=== PATIENT | male | born 1985 | race African-American/Black ===

== ENCOUNTER 2024-09-11 23:48 | Emergency (ER) | payer OTHER, SELFPAY ==
[2024-09-12] MEDS ORDERED: Acetaminophen 500 MG TAB ONE (00:43)
== END 2024-09-12 02:27 | disposition home or self-care (01) ==
LOC: ERS 23:48
DX: R05.9 Cough, unspecified (principal); L90.6 Striae atrophicae
CPT/HCPCS: 71045; 87081; 87428; 87430

== ENCOUNTER 2025-03-30 10:57 | Emergency (ER) | payer OTHER | END 2025-03-30 12:23 | disposition home or self-care (01) | LOC: ERS 10:57 | DX: S40.862A Insect bite (nonvenomous) of left upper arm, initial encounter (principal); S40.861A Insect bite (nonvenomous) of right upper arm, initial encounter; F17.210 Nicotine dependence, cigarettes, uncomplicated; W57.XXXA Bitten or stung by nonvenomous insect and other nonvenomous arthropods, initial encounter | CPT/HCPCS: 99282 ==